=== PATIENT | female | born 1990 | race Caucasian/White ===

== ENCOUNTER 2018-06-14 21:58 | Inpatient (IN) | payer MEDICAID ==
[2018-06-14] MEDS ORDERED: OLIVE OIL 118 ML BTL MISC PRN (22:11)
[2018-06-14] MEDS ORDERED: EPSOM SALT 454 GM TP PRN (22:11)
[2018-06-14] MEDS ORDERED: IBUPROFEN 600 MG TAB PO PRN (22:11)
[2018-06-14] MEDS ORDERED: MISOPROSTOL 200 MCG TAB PR PRN (22:11)
[2018-06-14] MEDS ORDERED: LR 1,000 ML IV PRN (22:11)
[2018-06-14] MEDS ORDERED: TERBUTALINE SULFATE 1 MG/ML VIAL IV PRN (22:11)
[2018-06-14] MEDS ORDERED: LIDOCAINE 1% 300 MG/30 ML SDV SC PRN (22:11)
[2018-06-14] MEDS ORDERED: OXYTOCIN/RINGERS LACTATE 1,000 ML IV PRN (22:11)
[2018-06-14] MEDS ORDERED: OLIVE OIL 118 ML BTL ONE (22:26)
[2018-06-14] MEDS ORDERED: TERBUTALINE SULFATE 1 MG/ML VIAL ONE (22:26)
[2018-06-14] MEDS ORDERED: MISOPROSTOL 200 MCG TAB ONE (22:26)
[2018-06-14] MEDS ORDERED: LIDOCAINE 1% 300 MG/30 ML SDV ONE (22:26)
[2018-06-14] MEDS ORDERED: AMMONIA AROMATIC 1 EACH AMP IH ONE (22:26)
[2018-06-14] MEDS ORDERED: OXYTOCIN 10 UNIT/ML VIAL ONE (22:26)
[2018-06-15] MEDS ORDERED: SIMETHICONE 80 MG TAB CHEW PO PRN (00:07)
[2018-06-15] MEDS ORDERED: ACETAMINOPHEN 325 MG TAB PO PRN (00:07)
[2018-06-15] MEDS ORDERED: HYDROCORTISONE 0.5% CREAM TP PRN (00:07)
[2018-06-15] MEDS ORDERED: DOCUSATE SODIUM 100 MG CAP PO PRN (00:07)
--- NOTE | 2018-06-15 00:07 | PDGENHP ---
History and Physical History and Physical: Care: [facility] HPI: Patient is a 27 yo @39-2 weeks that presents to L&D with complaints of contractions since this morning around 10am, but progressively intensifying since 1800. She rates pain with contractions 03/21. She reports SROM for clear fluid @ 2029. She denies any VB. She reports +FM. EDC: 06/20/18 which is based on Ultrasound at 7 weeks. Her is complicated by: Rubella Nonimmune Review of Systems: Constitutional: Denies any fever, chills, or fatigue HEENT: denies any visual changes, difficulty swallowing, hearing loss Cardiovascular: Denies any chest pain, palpitations, leg swelling Respiratory: denies any cough, wheezing, or shortness of breathe GI: Denies any nausea, vomiting, diarrhea, constipation : denies any dysuria, urgency, frequency, vaginal bleeding Musculoskeletal: denies any muscle or bone pain Skin: denies any rashes Neuro: denies any headache, seizures, lightheadedness, dizziness, or loss of consciousness Psychiatric: denies any depression, anxiety, or SI/HI thoughts HISTORY: Previous OB history: G1 Past medical history: h/o PCOS, rubella nonimmune Past surgical history: eustacian tubes, oral surgery Social: Denies any alcohol, tobacco, or drug use. Family history: h/o CF (standard panel negative) Medications: PNV Allergies (list reaction): PCN- hives LABS: Rh: O+ ABS: Neg Rubella: NON Immune HbsAg: NR HIV: NR VDRL: NR 1hr: 71 GC: Neg Chlamydia: Neg Pap: Normal GBS: negative BMI: (prepreg) 22 PHYSICAL EXAM: Constitutional: WN, A&Ox3 HEENT: normocephalic atraumatic, supple Skin: Warm, dry, intact Heart: RRR, no murmur Chest: CTA-B Abdomen: Soft, nontender, gravid SVE: c/c/1 Extremities: no edema, negative homans sign Neuro: grossly normal Psych: normal affect assessment: FHT baseline 130 +accels, +variable decels, moderate variability Contractions: toco q 3-5 Assessment: 1) 27yo with IUP@ 39-2wks 2) active labor 3) GBS negative 4) Cat 2 FHR tracing Plan: 1) Admit to L&D 2) anticipate Today's visit was approximately 30 min, of which >50% of visit 20 min, was spent face to face with pt on direct counseling/coordination of care.
--- NOTE | 2018-06-15 00:27 | OBDEL ---
Info Type: Vaginal Presentation at Delivery: Vertex L&D Analgesia/Anesthesia Type: None GBS+: No Intrapartum Medications: Discontinued Medications Generic Name Dose Route Start Last Admin Trade Name Ioana PRN Reason Stop Dose Admin Ibuprofen 600 mg 06/14/18 22:11 06/15/18 00:03 Motrin PO 600 mg ONCE PRN Administration post , pain Indications for Delivery: Spontaneous Labor, SROM Vaginal Delivery - Delivery Provider Delivery Physician/CNM: Eden Gambino - Labor and Delivery Onset of Contractions Date: 06/14/18 Onset of Contractions Time: 20:30 Onset of Contractions Type: Spontaneous Rupture of Membranes Date: 06/14/18 Rupture of Membranes Time: 20:30 Rupture of Membranes Type: Spontaneous Amniotic Fluid Color: Clear Dilation Complete Date: 06/14/18 Dilation Complete Time: 22:08 Placenta Delivery Date: 06/14/18 Placenta Delivery Time: 23:38 Total Hours of Labor: 3 Laceration: Other (Specify) (bilateral labial) Repair: 4-0, Chromic Vaginal Sponge Count Correct: Yes Vaginal Needle Count Correct: Yes Vaginal Sweep Performed: Yes EBL: 150 Delivery Events: None Delivery Comment: delivered on hands/knees Data ANATOLIY: 06/20/18 Gestational Age: 39 week(s) and 2 day(s) [place] Delivery Date: 06/14/18 Delivery Time: 23:26 Sex of Infant: Female Score (1 Min): 8 Score (5 Min): 9 ICD10 Worksheet Patient Problems: Problems Problem Status Onset Precipitous delivery Acute (spontaneous vaginal delivery) Acute - ICD10 Problem Qualifiers (1) Precipitous delivery (2) (spontaneous vaginal delivery)
[2018-06-15] MEDS: IBUPROFEN 600 MG TAB PO SCH ×3 (05:41→19:33)
[2018-06-15] MEDS ORDERED: CALCIUM CARBONATE 500 MG CHEWABLE TAB PO PRN (06:19)
--- NOTE | 2018-06-15 12:01 | OBPP ---
Progress Note Assessment/Plan: Assessment: 1. yesterday at 2326. 2. Breast feeding with assistance. 3. Normal PP progress. 4. Rubella non-immune. Plan: 1. Continue support. 2. May d/c home this evening if VSS remain stable and BF improves. 3. Undecided on MMR today. 06/15/18 11:55 Subjective/ Course: 06/15/18 12:01 Normal PP progress. Bleeding light to moderate. Breast feeding well. Ready to go home today. Will re-evaluate at 1900. Objective: Temp Pulse Resp BP Pulse Ox 36.7 C 73 15 103/62 96 06/15/18 08:00 06/15/18 08:00 06/15/18 08:00 06/15/18 08:00 06/15/18 08:00 VSS Uterine Position/Fundal Height: At Umbilicus Uterine Tone: Firm
[2018-06-16] MEDS: IBUPROFEN 600 MG TAB PO SCH ×2 (01:24→07:53)
[2018-06-16] MEDS ORDERED: MEASLES,MUMPS&RUBELLA VACC/PF 0.5 ML VIAL SC ONE (09:00)
[2018-06-16 10:32] VITALS: BP 112/73
--- NOTE | 2018-06-16 10:50 | OBGCSDC ---
General Delivery Information - General Info : 1 Para: 1 Abortions: 0 Type: Vaginal L&D Analgesia/Anesthesia Type: None Admission Date: 06/14/18 - Hospital Course : 06/15/18 12:01 Normal PP progress. Bleeding light to moderate. Breast feeding well. Ready to go home today. Will re-evaluate at 1900. 06/16/18 10:47 S) Pt doing well, reports min pain and bleeding. she is ambulating and voiding without difficulty. She is . She desires discharge home today. O) VSS, afebrile constitutional: WNF, A&Ox3 HEENT: normocephalic, atraumatic, supple Heart: RRR, No murmur Chest: CTA-B Breasts: soft, nontender, not engorged, nipples intact Abdomen: Soft, nontender Uterus: Firm at U-2 Lochia: Minimal rubra Perineum: Intact, healing well Extremities: Trace edema, and negative Percy's sign Neuro: Grossly normal A) 27 year-old S/P PPD#2 P) Discharge home today Continue Pelvic rest x6wks Discussed danger signs (infection, preeclampsia, depression, heavy bleeding, etc ) RTO in 2/4/6 weeks Vaginal - Delivery Provider Delivery Physician/CNM: Eden Gambino - Diagnosis Labor: Spontaneous Rupture of Membranes Type: Spontaneous Amniotic Fluid Color: Clear Laceration: Other (Specify) (bilateral labial) Repair: 4-0, Chromic Delivery Events: None - Delivery EBL: 150 Data ANATOLIY: 06/20/18 Gestational Age: 39 week(s) and 3 day(s) [place] Delivery Date: 06/14/18 Delivery Time: 23:26 Sex of : Female Weight (gm): 3158 g Score (1 Min): 8 Score (5 Min): 9
== END 2018-06-16 13:15 | disposition home or self-care (01) | DRG 560 ==
LOC: FLD 21:58 → FOB 06-15 02:00
PROVIDERS: ADMIT Advanced Practice Midwife; ATTEND Advanced Practice Midwife
PROC: 0HQ9XZZ Repair Perineum Skin, External Approach (ICD-10-PCS; principal; 2018-06-14)
PROC: 10E0XZZ Delivery of Products of Conception, External Approach (ICD-10-PCS; principal; 2018-06-14)
DX: O62.3 Precipitate labor (principal); O70.0 First degree perineal laceration during delivery; Z3A.39 39 weeks gestation of pregnancy; Z37.0 Single live birth
CPT/HCPCS: J2590; J3105